=== PATIENT | female | born 1990 | race African-American/Black ===

== ENCOUNTER 2017-06-22 18:17 | Emergency (ER) | payer MEDICAID ==
--- NOTE | 2017-06-22 20:03 | Emergency Department Report ---
ED General Adult HPI - General Chief complaint: Upper Respiratory Infection Stated complaint: COUGH/CONGESTION/RUNNY NOSE Time Seen by Provider: 06/22/17 20:02 Source: patient Mode of arrival: Ambulatory Limitations: No Limitations - Related Data Allergies Allergy/AdvReac Type Severity Reaction Status Date / Time No Known Allergies Allergy Unverified 06/22/17 18:24 ED Review of Systems ROS: Stated complaint: COUGH/CONGESTION/RUNNY NOSE Other details as noted in HPI ED Past Medical Hx - Past Medical History Previous Medical History?: No - Surgical History Past Surgical History?: No - Social History Smoking Status: Never Smoker Substance Use Type: None ED Physical Exam - General Limitations: No Limitations ED Course Vital Signs 06/22/17 18:24 Temperature 98.5 F Pulse Rate 77 Respiratory 18 Rate Blood Pressure 104/65 O2 Sat by Pulse 98 Oximetry Critical care attestation.: If time is entered above; I have spent that time in minutes in the direct care of this critically ill patient, excluding procedure time. ED Disposition Condition: Stable Referrals: PRIMARY CARE [Primary Care Provider] - 3-5 Days
--- NOTE | 2017-06-22 21:27 | Emergency Department Report ---
Minor Respiratory - HPI Chief Complaint: Upper Respiratory Infection Stated Complaint: COUGH/CONGESTION/RUNNY NOSE Time Seen by Provider: 06/22/17 20:02 Duration: patient states that she has had chronic runny nose cough sinus congestion and postnasal drip for the past several months Pain Location: Throat (pain with swallowing has been present this week) Severity: moderate Minor Respiratory: Yes Rhinorrhea, Yes Sore Throat, Yes Cough (productive of yellow-green sputum), No Able to Tolerate Fluids, No Ear Pain, No Sick Contacts , No Hemoptysis, No Shortness of Breath, No Fever Other History: Patient states that she is seen ENT for her symptoms as well as primary care. She was told by the ENT physician that she has sinus infection and was started on antibiotics several months ago and symptoms did resolve briefly but have returned. Patient states her main concern today is the sore throat which is new. Patient chronically has postnasal drip across and sinus discomfort. Patient is 5 weeks at this time. Patient denies any problems with her to this point. Patient states that she has had no vaginal bleeding ED Review of Systems ROS: Stated complaint: COUGH/CONGESTION/RUNNY NOSE Other details as noted in HPI Comment: All other systems reviewed and negative ED Past Medical Hx - Past Medical History Previous Medical History?: No - Surgical History Past Surgical History?: No - Social History Smoking Status: Never Smoker Substance Use Type: None - Medications Home Medications: Home Medications Medication Instructions Recorded Confirmed Last Taken Type Azithromycin [Zithromax Z-RHIANNA] 250 mg PO DAILY 5 Days #6 tablet 06/22/17 Unknown Rx Minor Respiratory Exam - Exam General: Vital signs noted. No distress. Alert and acting appropriately. HEENT: Yes Pharyngeal Erythema, Yes Moist Mucous Membranes, No Pharyngeal Exudates, No Rhinorrhea, No Conjuctival Injection, No Frontal Tenderness, No Maxillary Tenderness Ear: Neither TM Bulge, Neither TM Erythema Neck: Yes Adenopathy (shotty anterior cervical lymph nodes) Lungs: Yes Good Air Exchange, No Wheezes, No Ronchi, No Stridor, No Cough, No Labored Respirations Heart: Yes Regular, No Murmur Abdomen: Yes Normal Bowel Sounds, No Tenderness, No Peritoneal Signs Skin: No Rash Neurologic: Alert and oriented, no deficits. Musculoskeletal: Unremarkable. ED Course Vital Signs 06/22/17 18:24 Temperature 98.5 F Pulse Rate 77 Respiratory 18 Rate Blood Pressure 104/65 O2 Sat by Pulse 98 Oximetry ED Medical Decision Making - Lab Data Rapid strep test was negative - Medical Decision Making Patient is a 27-year-old female who is presenting with chronic sinus issues as well as a cough cold congestion sore throat. Patient very concerned about taking medications that she is . The patient will be given a Z-Rhianna which is safe in . Patient also is to have prescriptions for decongestants and steroids will be will try a Shantell pot. Critical care attestation.: If time is entered above; I have spent that time in minutes in the direct care of this critically ill patient, excluding procedure time. ED Disposition Clinical Impression: Rhinitis, Upper respiratory infection Disposition: - TO HOME OR SELFCARE Is pt being admited?: No Does the pt Need Aspirin: No Condition: Fair Instructions: Upper Respiratory Infection (ED) Prescriptions: Azithromycin [Zithromax Z-RHIANNA] 250 mg PO DAILY 5 Days #6 tablet Referrals: PRIMARY CARE, [Primary Care Provider] - 3-5 Days
[2017-06-22 23:04] VITALS: BP 108/64
== END 2017-06-22 23:04 | disposition home or self-care (01) ==
LOC: ED 18:17
DX: O26.891 Other specified pregnancy related conditions, first trimester (principal); J31.0 Chronic rhinitis; J06.9 Acute upper respiratory infection, unspecified; Z3A.01 Less than 8 weeks gestation of pregnancy
CPT/HCPCS: 87116; 87430; 99282

== ENCOUNTER 2017-07-23 09:46 | Emergency (ER) | payer MEDICAID ==
[2017-07-23 11:30] VITALS: BP 110/72
[2017-07-23 12:02] LABS: Basophils # (Auto) 0.1 K/mm3 (0.0-0.1); Basophils % (Auto) 0.7 % (0.0-1.8); Eosinophils # (Auto) 0.1 K/mm3 (0.0-0.4); Eosinophils % (Auto) 0.9 % (0.0-4.3); Hematocrit 42.6 % (30.3-42.9); Hemoglobin 14.1 gm/dl (10.1-14.3); Lymphocytes # (Auto) 2.2 K/mm3 (1.2-5.4); Lymphocytes % (Auto) 18.9 % (13.4-35.0); Mean Corpuscular HGB Conc 33 % (30-34); Mean Corpuscular Hemoglobin 30 pg (28-32); Mean Corpuscular Volume 89 fl (79-97); Monocytes # (Auto) 0.6 K/mm3 (0.0-0.8); Monocytes % (Auto) 5.6 % (0.0-7.3); Platelet Count 280 K/mm3 (140-440); Red Blood Count 4.78 M/mm3 (3.65-5.03); Red Cell Distribution Width 12.7 % (13.2-15.2)
[2017-07-23 12:12] LABS: Alanine Aminotransferase 40 units/L (7-56); Albumin 3.9 g/dL (3.9-5); BUN/Creatinine Ratio 25; Blood Urea Nitrogen 10 mg/dL (7-17); Calcium 9.1 mg/dL (8.4-10.2); Hemolysis Index 4
[2017-07-23 12:19] LABS: Bilirubin,Urine NEG (Negative); Blood,Urine MOD (Negative); Color,Urine Yellow (Yellow); Mucus,Urine FEW /HPF; Nitrite,Urine NEG (Negative); Protein,Urine <15 mg/dL mg/dL (Negative); Urobilinogen,Urine < 2.0 mg/dL (<2.0)
== END 2017-07-24 | disposition left against medical advice (07) ==
LOC: ED 09:46
DX: R42 Dizziness and giddiness (principal); R11.11 Vomiting without nausea; Z53.21 Procedure and treatment not carried out due to patient leaving prior to being seen by health care provider
CPT/HCPCS: 36415; 80053; 81001; 84702; 85025

== ENCOUNTER 2018-03-18 07:38 | Day surgery (SDC) | payer MEDICAID ==
--- NOTE | 2018-03-17 03:24 | History and Physical Report ---
History of Present Illness Date of examination: 03/14/18 Date of admission: 03/18/18 Chief complaint: I want my rubes tide History of present illness: History of Present Illness: pt presents for pre-op..................igarcia Pt here for pre op for sterilization. I d/w various methods of sterilizations. All risk/benefits/alternatives were d/w pt and questions were addressed and answered. She desires to have the salpingectomy. Consents were signed and placed on the chart. Vital Signs: Patient Profile: 28 Years Old Female Height: 60 inches (152.40 cm) Weight: 153 pounds (69.55 kg) BMI: 29.88 BSA: 1.67 BP sittin / 68 (left arm) Vitals Entered By: Yani Clancy (March 14, 2018 2:54 PM) Past History : 3 Term Births: 3 Premature Births: 0 Living Children: 3 Para: 3 Mult. Births: 0 Prev : 0 Aborta: 0 Elect. Ab: 0 Spont. Ab: 0 Ectopics: 0 # 1 Delivery date: 03/03/2008 Weeks Gestation: 41 labor: no Delivery type: Hours of labor: 13 Anesthesia type: ivspinal weight: 7-12 Name: Celia # 2 Delivery date: 08/22/2013 Weeks Gestation: 39 Delivery type: Vaginal Anesthesia type: none Delivery location: [facility] Sex: male weight: 7.94 Comments: polyhydraminos mild shoulder dystocia # 3 Delivery date: 01/28/2018 Weeks Gestation: 38+0 Delivery type: Vaginal Hours of labor: 5 Anesthesia type: epidural Delivery location: [facility] Sex: female weight: 6.13 Name: Mary Comments: hemorrhage, 3rd stage 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 of genital herpes: no Hx of STD: none Active Medications (reviewed today): ZANTAC 150 MG ORAL TABLET (RANITIDINE HCL) one po bid prn heartburn VITAMINS () VITAMIN D () Current Allergies (reviewed today): No known allergies Past Medical History: Reviewed history from 08/07/2017 and no changes required: Negative Past Medical History Past Surgical History: Reviewed history from 03/17/2013 and no changes required: Negative Past Surgical History [FH--[facility]] Risk Factors: Smoked Tobacco Use: Never smoker Smokeless Tobacco Use: Never Passive smoke exposure: no Drug use: no HIV high-risk behavior: no Alcohol use: no Exercise: no Seatbelt use: 100 % Past History Past Medical History: asthma Past Surgical History: other (see hpi) 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: other (see hpi) Family/Genetic History: other (see hpi) Social history: other (see hpi) - Obstetrical History : 3 Para: 3 Number of Living Children: 3 Medications and Allergies Allergies Allergy/AdvReac Type Severity Reaction Status Date / Time No Known Allergies Allergy Unverified 03/12/18 10:20 Home Medications Medication Instructions Recorded Confirmed Last Taken Type ALBUTEROL Inhaler(NF) [VENTOLIN 1 puff IH PRN PRN 03/12/18 03/12/18 Unknown History Inhaler(NF)] Albuterol Sulfate [Albuterol 0.63% 0.63 mg IH TID PRN 03/12/18 03/12/18 Unknown History NEBS] Review of Systems All systems: negative - Physical Exam Cardiovascular: Normal S1, Normal S2 Lungs: Positive: Clear to auscultation, Normal air movement Abdomen: Positive: normal appearance, soft. Negative: distention, tenderness, guarding Genitourinary (Female): Positive: other (deferred until eua) Extremities: Positive: normal. Negative: tenderness, edema Results All other labs normal. Assessment and Plan - Patient Problems (1) Sterilization Status: Acute Plan to address problem: admit -prepare for laparoscopic salpingectomy
[~2018-03-18 07:38] MED LIST: ANCEF/STERILE WATER 2 GM/20 ML 2 GM/20 ML SYRINGE IV NR; MARCAINE 0.5% INFILTRATI ONE
[2018-03-18] MEDS ORDERED: DIPRIVAN 10 MG/ML IV ONE (08:46)
[2018-03-18] MEDS ORDERED: SUBLIMAZE ONE (08:46)
[2018-03-18] MEDS ORDERED: DILAUDID IV PRN (09:04)
[2018-03-18] MEDS ORDERED: ANCEF/STERILE WATER 2 GM/20 ML IV NR (09:05)
[2018-03-18] MEDS ORDERED: PROVENTIL IH NR (09:15)
--- NOTE | 2018-03-18 09:15 | Anesthesia Day of Surgery ---
Anesthesia Day of Surgery - Day of Surgery Patient Examined: Yes Patient H&P Reviewed: Yes Patient is NPO: Yes
--- NOTE | 2018-03-18 09:15 | Anesthesia Consultation ---
Anesthesia Consult and Med Hx Date of service: 03/18/18 - Airway Anesthetic Teeth Evaluation: Good ROM Head & Neck: Adequate Mental/Hyoid Distance: Adequate Mallampati Class: Class II Intubation Access Assessment: Probably Good - Pulmonary Exam CTA: No (bilateral wheezing throughout) - Cardiac Exam Cardiac Exam: RRR - Pre-Operative Health Status ASA Pre-Surgery Classification: ASA2 Proposed Anesthetic Plan: General - Pulmonary Hx Smoking: No Hx Asthma: Yes (used albuterol this moring) Hx Respiratory Symptoms: Yes (nasal congestion x1 day. No fevers/chills/cough.) SOB: No COPD: No Home Oxygen Therapy: No - Cardiovascular System Hx Hypertension: No Hx Heart Attack/AMI: No - Central Nervous System Hx Seizures: No CVA: No - Gastrointestinal Hx Gastroesophageal Reflux Disease: No - Endocrine Hx Renal Disease: No Hx Liver Disease: No Hx Insulin Dependent Diabetes: No Hx Thyroid Disease: No - Additional Comments Anesthesia Medical History Comments: Will give albuterol neb in preop.
[2018-03-18] MEDS ORDERED: VERSED IV NR (10:00)
[2018-03-18] MEDS ORDERED: LACTATED RINGERS 1,000 ML IV SCH (10:00)
[2018-03-18] MEDS ORDERED: NEURONTIN PO NR (10:00)
[2018-03-18] MEDS ORDERED: XYLOCAINE MPF 2% ONE (10:16)
[2018-03-18] MEDS ORDERED: DECADRON ONE (10:17)
[2018-03-18] MEDS ORDERED: ZOFRAN ONE (10:17)
[2018-03-18] MEDS ORDERED: ZEMURON IV ONE (10:17)
[2018-03-18] MEDS ORDERED: QUELICIN ONE (10:17)
[2018-03-18] MEDS ORDERED: ROBINUL ONE (10:26)
[2018-03-18] MEDS ORDERED: BLOXIVERZ ONE (10:27)
--- NOTE | 2018-03-18 10:55 | Operative Report ---
Operative Report Operative Report: Date of procedure: 03/18/2018 Pre-operative diagnosis: Desires sterilization Post-operative diagnosis: Same Procedure name(s): Laparoscopic tuba ligation via bilateral salpingectomy Surgeon: Dr. 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 endotracheal anesthesia EBL: Minimal Urine output: 25 mL of urine out prior to the onset of the procedure Fluids: 700 mL Findings: Grossly normal fallopian tubes and ovaries by laterally Normal cervix normal vagina Indications: Patient desired permanent sterilization. All risks benefits and alternatives were discussed with the patient. The benefits of having subjective was also discussed with the patient. Patient desired to have salpingectomy. Since were signed and placed on the chart. Procedure: Patient was taken to the operating room and which she was placed under general endotracheal anesthesia. Patient was then prepped and draped in sterile fashion and placed in dorsal lithotomy position in Rigoberto stirrups. Attention was then turned to the vagina in which a Humi uterine manipulator was placed. Patient underwent straight catheterization. Attention was then turned to the umbilicus and which an infraumbilical incision was made with the scalpel 5mm trocar was placed using direct visualization with the camera. Abdomen was then insufflated with gas. Under direct visualization 2 5mm trocars were placed. The right fallopian tube was then grasped with the grasper elevated cauterized and transected with the LigaSure device with portions of the right tube handed off to pathology. Excellent hemostasis was noted. This was repeated on the left side. Again excellent hemostasis was noted. After tubal ligation was completed all instruments were removed from the abdomen under direct visualization. All gas was also released from the abdomen. The skin was approximated with 4-0 Monocryl in a subcuticular stitch. All incisions were injected with Marcaine without epi. Surgical glue was placed over all incisions. The patient tolerated procedure well. Sponge, lap, and needle counts were all correct x3 the patient was taken to the recovery room awake and in stable condition.
--- NOTE | 2018-03-18 10:56 | Short Stay Summary ---
Short Stay Documentation Date of service: 03/18/18 - History Social history: other (see hpi) - Allergies and Medications Current Medications: Allergies No Known Allergies Allergy (Unverified 03/12/18 10:20) Home Medications Medication Instructions Recorded Confirmed Last Taken Type ALBUTEROL Inhaler(NF) [VENTOLIN 1 puff IH PRN PRN 03/12/18 03/12/18 Unknown History Inhaler(NF)] Albuterol Sulfate [Albuterol 0.63% 0.63 mg IH TID PRN 03/12/18 03/12/18 Unknown History NEBS] oxyCODONE /ACETAMINOPHEN [Percocet 1 tab PO Q4HR #30 tab 03/18/18 Unknown Rx 5/325] Active Medications Albuterol (Proventil) 2.5 mg IH PREOP NR Stop: 03/18/18 15:00 Last Admin: 03/18/18 09:23 Dose: 2.5 mg Cefazolin Sodium (Ancef/Sterile Water 2 Gm/20 Ml) 2 gm IV PREOP NR Stop: 03/18/18 15:00 Celecoxib (Celebrex) 200 mg PO PREOP NR Stop: 03/18/18 15:00 Last Admin: 03/18/18 09:29 Dose: 200 mg Gabapentin (Neurontin) 300 mg PO PREOP NR Stop: 03/18/18 15:00 Last Admin: 03/18/18 09:29 Dose: 300 mg Hydromorphone HCl (Dilaudid) 0.5 mg IV Q10MIN PRN PRN Reason: Pain , Severe (7-10) Stop: 03/18/18 20:00 Lactated Ringer's (Lactated Ringers) 1,000 mls @ 100 mls/hr IV DIRECT GENNY Last Admin: 03/18/18 09:40 Dose: 100 mls/hr Midazolam HCl (Versed) 2 mg IV PREOP NR Stop: 03/18/18 23:59 Last Admin: 03/18/18 09:44 Dose: 2 mg - Brief post op/procedure progress note Date of procedure: 03/18/18 Pre-op diagnosis: multiparity desires permanent sterilization Post-op diagnosis: same Procedure: Laparoscopic bilateral salpingectomy Anesthesia: GETA Findings: See operative report Surgeon: GABRIEL DAVE Estimated blood loss: minimal Pathology: list (portions of left and right fallopian tube) Specimen disposition: to lab Condition: stable - Hospital course Hospital course: Patient was admitted for above-stated procedure patient underwent above stated procedure. Procedure was not complicated. Patient was discharged home when recovery was completed and she met discharge criteria. - Disposition Condition at discharge: Good Disposition: DC-01 TO HOME OR SELFCARE - Discharge Diagnoses (1) Sterilization Status: Acute Short Stay Discharge Plan Additional Instructions: APPOINTMENT: DR. GABRIEL DAVE M.D. WANTS TO SEE YOU IN 7 DAYS. CALL THE OFFICE FOR YOUR APPOINTMENT. WOUN CARE: KEEP IT CLEAN AND DRY. DO NOT CHANGE DREESING. DIET: REGULAR. Follow up with: IRINA GONZALEZ MD [Primary Care Provider] - 7 Days Forms: Outpatient Surgery DC Inst. Prescriptions: oxyCODONE /ACETAMINOPHEN [Percocet 5/325] 1 tab PO Q4HR #30 tab
--- NOTE | 2018-03-18 11:54 | Post Anesthesia Evaluation ---
- Post Anesthesia Evaluation Patient Participated: Yes Airway Patent: Yes Stable Respiratory Function: Yes Nausea/Vomiting: No Temp > 96.8F: Yes Pain Manageable: Yes Adequeate Hydration: Yes Anesthesia Complications: No
[2018-03-18 11:59] VITALS: BP 118/71
== END 2018-03-18 13:10 | disposition home or self-care (01) ==
LOC: OR 07:38
PROVIDERS: ATTEND Obstetrics & Gynecology
DX: Z30.2 Encounter for sterilization (principal); G43.909 Migraine, unspecified, not intractable, without status migrainosus; J45.909 Unspecified asthma, uncomplicated; Z79.899 Other long term (current) drug therapy
CPT/HCPCS: 58661; 81025; 88302; J0330; J0690; J1100; J1170; J2250; J2405; J2704; J2710; J3010; J7120

== ENCOUNTER 2020-06-14 03:39 | Emergency (ER) | payer MEDICAID ==
[2020-06-14 04:16] LABS: Basophils # (Auto) 0.1 K/mm3 (0.0-0.1); Basophils % (Auto) 0.6 % (0.0-1.8); Eosinophils # (Auto) 0.3 K/mm3 (0.0-0.4); Eosinophils % (Auto) 2.5 % (0.0-4.3); Hematocrit 39.1 % (30.3-42.9); Hemoglobin 13.2 gm/dl (10.1-14.3); Lymphocytes # (Auto) 4.3 K/mm3 (1.2-5.4); Lymphocytes % (Auto) 43.2 % (13.4-35.0); Mean Corpuscular HGB Conc 34 % (30-34); Mean Corpuscular Volume 89 fl (79-97); Monocytes # (Auto) 0.8 K/mm3 (0.0-0.8); Monocytes % (Auto) 8.1 % (0.0-7.3); Platelet Count 292 K/mm3 (140-440); Red Blood Count 4.38 M/mm3 (3.65-5.03); Red Cell Distribution Width 13.6 % (13.2-15.2)
[2020-06-14 04:38] LABS: Alanine Aminotransferase 21 units/L (7-56); Blood Urea Nitrogen 17 mg/dL (7-17); Calcium 9.6 mg/dL (8.4-10.2); Hemolysis Index 22
[2020-06-14 04:44] LABS: BUN/Creatinine Ratio 24
[2020-06-14 04:47] LABS: Bilirubin,Urine NEG (Negative); Blood,Urine SM (Negative); Color,Urine Yellow (Yellow); Mucus,Urine 1+ /HPF; Protein,Urine <15 mg/dL mg/dL (Negative); Urobilinogen,Urine < 2.0 mg/dL (<2.0)
== END 2020-06-14 05:17 | disposition left against medical advice (07) ==
LOC: ED 03:39
DX: R10.9 Unspecified abdominal pain (principal); Z53.21 Procedure and treatment not carried out due to patient leaving prior to being seen by health care provider
CPT/HCPCS: 36415; 80053; 81001; 83690; 84703; 85025